=== PATIENT | female | born 1970 | race Caucasian/White ===

== ENCOUNTER 2022-02-18 20:41 | Emergency (ER) | payer MEDICAID ==
[~2022-02-18] VITALS: Ht 147.3 cm; Wt 77.1 kg
[2022-02-18 21:17] VITALS: BP 127/88
[2022-02-18] MEDS ORDERED: KETOROLAC 60MG/2ML VIAL IM ONE (22:45)
[2022-02-18] MEDS ORDERED: IBUP-2029 MT (23:51)
== END 2022-02-19 00:55 | disposition home or self-care (01) ==
LOC: ER 20:41
DX: R68.89 Other general symptoms and signs (principal); Z59.00 Homelessness unspecified; Z90.49 Acquired absence of other specified parts of digestive tract
CPT/HCPCS: 73080; 73130; 81025; 99284; J1885

== ENCOUNTER 2022-12-01 15:57 | Emergency (ER) | payer MEDICAID ==
[~2022-12-01] VITALS: Ht 152.4 cm; Wt 91.0 kg
[~2022-12-01 15:57] MED LIST: IBUP-2029 MT
[2022-12-01] MEDS ORDERED: KETOROLAC 60MG/2ML VIAL IM ONE (21:00)
[2022-12-01 21:16] VITALS: BP 142/62
[2022-12-01 22:34] LABS: BASOPHILS % 0.3 % (0.0-2.0); EOSINOPHILS % 1.5 % (0.0-5.0); HEMATOCRIT. 45.6 % (36.0-48.0); HEMOGLOBIN. 15.6 g/dL (12.0-16.0); LYMPHOCYTES % 32.3 % (20.0-50.0); MEAN CORPUSCULAR HEMOGLOBIN 30.5 pg (28.0-32.0); MEAN CORPUSCULAR VOLUME 89.4 fL (81.0-99.0); MONOCYTES % 5.1 % (2.0-8.0); NEUTROPHILS % 60.8 % (40.0-76.0); PLATELET 308 x1000/uL (130-400); RED CELL DISTRIBUTION WIDTH 13.7 % (11.6-14.6)
[2022-12-01 22:43] LABS: CHLORIDE 104 mEq/L (98-107)
[2022-12-01 22:44] LABS: INR 0.9; PROTHROMBIN TIME 10.1 sec (9.6-11.0)
== END 2022-12-01 23:26 | disposition home or self-care (01) ==
LOC: ER 15:57
DX: R07.89 Other chest pain (principal); R11.0 Nausea; Z90.49 Acquired absence of other specified parts of digestive tract; Z98.890 Other specified postprocedural states
CPT/HCPCS: 36415; 71045; 80053; 81025; 83690; 84484; 85025; 85610; 93005; 96372; 99285; J1885

== ENCOUNTER 2024-06-18 21:10 | Emergency (ER) | payer MEDICAID ==
[2024-06-18 21:23] VITALS: PULSE 87; O2SAT 98
== END 2024-06-18 21:33 | disposition left against medical advice (07) ==
LOC: ER 21:10
DX: R51.9 Headache, unspecified (principal); Z53.21 Procedure and treatment not carried out due to patient leaving prior to being seen by health care provider